=== PATIENT | male | born 1965 | race Caucasian/White ===

== ENCOUNTER 2016-11-10 08:15 | Emergency (ER) | payer MEDICARE, MEDICAID ==
[2016-11-10 08:40] VITALS: BP 134/81
--- NOTE | 2016-11-10 10:23 | UC ---
Quinn Conn Angela, scribed for Bishnu Martino MD on 11/10/16 at 0846 . Throat Pain/Nasal Quinn HPI - HPI Summary HPI Summary: This pt is a 50 y/o male presenting to [facility] c/o sore throat x3 weeks. PT reports it is painful to swallow and denies having any food stuck. Pt states he hikes all the time. He denies fever, nausea, abd pain, rhinorrhea, nasal congestion. Pt has taken ibuprofen with no relief. - History of Current Complaint Chief Complaint: UCGeneralIllness Stated Complaint: SORE THROAT Time Seen by Provider: 11/10/16 08:34 Hx Obtained From: Patient Onset/Duration: Lasting Weeks Cough: Nonproductive Associated Signs & Symptoms: Positive: Drooling - from medication. Negative: Sinus Discomfort, Nasal Discharge, Fever, Vomiting, Rash - Allergies/Home Medications Allergies/Adverse Reactions: Allergies Allergy/AdvReac Type Severity Reaction Status Date / Time No Known Allergies Allergy Verified 06/06/15 12:26 PMH/Surg Hx/FS Hx/Imm Hx Endocrine History: Diabetes, Thyroid Disease - Surgical History Surgical History: None - Family History Known Family History: Positive: Unknown, Other - mother of CA pancreas; no hx of colon cancer. - Social History Alcohol Use: None Substance Use Type: None Smoking Status (MU): Former Smoker Review of Systems Constitutional: Negative Skin: Negative Eyes: Negative ENT: Sore Throat Respiratory: Cough Cardiovascular: Negative Gastrointestinal: Negative Genitourinary: Negative Musculoskeletal: Negative Neurological: Negative All Other Systems Reviewed And Are Negative: Yes Physical Exam Triage Information Reviewed: Yes Vital Signs: Initial Vital Signs Temp 97.2 F 11/10/16 08:23 Pulse 82 11/10/16 08:23 Resp 18 11/10/16 08:23 BP 134/81 11/10/16 08:23 Pulse Ox 100 11/10/16 08:23 Vital Signs Reviewed: Yes - Additional Comments The patient is well-nourished in no acute distress and in no acute pain. The skin is warm and dry and skin color reflects adequate perfusion. HEENT: The head is normocephalic and atraumatic. The pupils are equal and reactive. The conjunctivae are clear and without drainage. Nares are patent and without drainage. Mouth reveals moist mucous membranes and the throat is without exudates, but some erythema in the pharynx. Bilateral cervical adenopathy. The external ears are intact. The ear canals are patent and without drainage. The tympanic membranes are intact. Neck is supple with full range of motion and non-tender. There are no carotid bruits. There is no neck vein distension. Respiratory: Chest is non-tender. Lungs are clear to auscultation and breath sounds are symmetrical and equal. Cardiovascular: Hear is regular rate and rhythm. There is no murmur or rub auscultated. Musculoskeletal: There is no back pain noted. Extremities are non-tender with full range of motion. There is good capillary refill. Neurological: Patient is alert and oriented to person, place and time. The patient has symmetrical motor strength in all four extremities. Psychiatric: The patient has an appropriate affect and does not exhibit any anxiety or depression. Throat Pain/Nasal Course/Dx - Differential Dx/Diagnosis Differential Diagnosis/HQI/PQRI: Pharyngitis, Tonsillitis, URI Provider Diagnoses: Pharyngitis Discharge - Discharge Plan Condition: Stable Disposition: HOME Prescriptions: Amoxicillin PO (*) [Amoxicillin 500 MG CAP*] 500 mg PO TID #30 cap Patient Education Materials: Pharyngitis (ED) Referrals: Dorian Alvarez MD [Medical Doctor] - Additional Instructions: Please follow up with your primary care provider to assure your symptoms are improving. The documentation as recorded by the Quinn beltran Angela accurately reflects the service I personally performed and the decisions made by , Bishnu Martino MD.
== END 2016-11-10 09:00 | disposition home or self-care (01) ==
LOC: UCEAST 08:15
DX: J02.9 Acute pharyngitis, unspecified (principal); E11.9 Type 2 diabetes mellitus without complications; E07.9 Disorder of thyroid, unspecified
CPT/HCPCS: 99212; G0463

== ENCOUNTER 2017-05-15 13:10 | Emergency (ER) | payer MEDICARE, MEDICAID ==
[2017-05-15 13:29] VITALS: BP 145/97
--- NOTE | 2017-05-20 21:17 | UC ---
Dario Conn Gabriel, scribed for Jason Huston MD on 05/15/17 at 1345 . Lower Extremity/Ankle HPI - HPI Summary HPI Summary: This patient is a 51 year old M presenting to [facility] with a chief complaint of intermittent numbness and tingling in his feet since a month ago. The patient rates the pain 0/10 in severity. Pt was diagnosed with DM for 10 years and was on metformin but was taken off it after 3 month. Patient denies color change of feet, neck pain, back pain, and incontinence. Pt fell off a roof several years ago and injured his back but no xrays were taken. - History of Current Complaint Chief Complaint: UCLowerExtremity Stated Complaint: FOOT NUMBNESS Time Seen by Provider: 05/15/17 13:35 Hx Obtained From: Patient Onset/Duration: Lasting Weeks - 4, Still Present Severity Initially: Moderate Severity Currently: Moderate Pain Intensity: 0 Pain Scale Used: 0-10 Numeric Able to Bear Weight: Yes - Allergies/Home Medications Allergies/Adverse Reactions: Allergies Allergy/AdvReac Type Severity Reaction Status Date / Time No Known Allergies Allergy Verified 05/15/17 13:30 Home Medications: Home Medications Atorvastatin* [Lipitor 20 MG*] 20 mg PO DAILY 05/15/17 [History Confirmed ] Duloxetine HCl [Cymbalta] 60 mg PO DAILY 05/15/17 [History Confirmed 05/15/17] PMH/Surg Hx/FS Hx/Imm Hx Endocrine History: Diabetes Other History Of: Negative For: Anticoagulant Therapy - Surgical History Surgical History: None Surgery Procedure, Year, and Place: denies - Family History Known Family History: Positive: Diabetes, Other - mother of CA pancreas; no hx of colon cancer. Negative: Respiratory Disease, Seizure Disorder - Social History Alcohol Use: Rare Substance Use Type: None Smoking Status (MU): Former Smoker When Did the Patient Quit Smoking/Using Tobacco: 12 years ago Household Exposure Type: Cigarettes Review of Systems Neurovascular: Decreased Sensation - and numbness in feet Musculoskeletal: Negative - back and neck pain All Other Systems Reviewed And Are Negative: Yes Physical Exam Triage Information Reviewed: Yes Vital Signs: Initial Vital Signs Temp 97.2 F 05/15/17 13:24 Pulse 96 05/15/17 13:24 Resp 18 05/15/17 13:24 BP 145/97 05/15/17 13:24 Pulse Ox 100 05/15/17 13:24 Vital Signs Reviewed: Yes - Additional Comments General: well-appearing, no pain distress Skin: warm, color reflects adequate perfusion, dry Head: normal Eyes: EOMI, HUMBERTO ENT: normal Neck: supple, nontender Respiratory: CTA, breath sounds present Cardiovascular: RRR Abdomen: soft, nontender Bowel: present Musculoskeletal: normal, strength/ROM intact. Dorsal pedis and posterior tibial pulses are less than 2 seconds. No sensation deficit strength. Achilles and patella reflex present Neurological: normal, sensory/motor intact, A&O x3 Psychological: affect/mood appropriate] Lower Extremity Course/Dx - Course Course Of Treatment: BP noted and advised to follow up with PCP - Differential Dx/Diagnosis Provider Diagnoses: Elevated blood pressure without history of hypertension Discharge - Discharge Plan Condition: Stable Disposition: HOME Patient Education Materials: Raynaud Disease (ED), Paresthesia (ED) Referrals: [facility] [Outside] Additional Instructions: FOLLOW UP WITH YOUR DOCTOR. GET RECHECKED FOR ANY WORSENING OF YOUR CONDITION OR QUESTIONS OR CONCERNS. Your blood pressure was elevated during today's visit. Please follow up with your primary care provider in 1-2 weeks. The documentation as recorded by the Dario beltran Gabriel accurately reflects the service I personally performed and the decisions made by me, Jason Huston MD.
== END 2017-05-15 14:06 | disposition home or self-care (01) ==
LOC: UCEAST 13:10
DX: R20.2 Paresthesia of skin (principal); R03.0 Elevated blood-pressure reading, without diagnosis of hypertension; E11.9 Type 2 diabetes mellitus without complications; Z87.891 Personal history of nicotine dependence
CPT/HCPCS: 81003; 99211; G0463

== ENCOUNTER 2017-10-04 16:39 | Emergency (ER) | payer MEDICARE, MEDICAID ==
[2017-10-04 16:52] VITALS: BP 108/65
--- NOTE | 2017-10-04 17:46 | UC ---
Rectal Pain HPI - HPI Summary HPI Summary: Patient with known history of hemorrhoids notes bright red blood when wiping after a BM for the past few days. 5 days ago had some nausea and one episode of vomiting. Had crampy abdominal pain and several episodes of diarrhea over the next 2 days. Yesterday and today patient states he feels more constipated and is having mucousy stools with blood streaks. Has sensation of incomplete voiding. No urinary symptoms. No fever. Admits that he has had intermittent mucousy stools for years. - History Of Current Complaint Chief Complaint: UCGI Stated Complaint: ABD PAIN,BLEEDING Time Seen by Provider: 10/04/17 17:01 Hx Obtained From: Patient Onset/Duration: Sudden Onset, Lasting Days, Still Present Severity Initially: Moderate Severity Currently: Moderate Pain Intensity: 0 Pain Scale Used: 0-10 Numeric Location Of Pain: Rectal Character: Sharp, Burning Aggravating Factor(s): Bowel Movement Alleviating Factor(s): Nothing Associated Signs And Symptoms: Positive: Blood-Streaked Stool, External Hemorrhoid, Diarrhea, Constipation Related History: Hemorrhoids - Allergies/Home Medications Allergies/Adverse Reactions: Allergies Allergy/AdvReac Type Severity Reaction Status Date / Time No Known Allergies Allergy Verified 10/04/17 16:46 PMH/Surg Hx/FS Hx/Imm Hx Endocrine History: Diabetes, Hypothyroidism Psychological History: Schizophrenia Other History Of: Negative For: Anticoagulant Therapy - Surgical History Surgical History: None Surgery Procedure, Year, and Place: denies - Family History Known Family History: Positive: Diabetes, Other - mother of CA pancreas; no hx of colon cancer. Negative: Respiratory Disease, Seizure Disorder - Social History Alcohol Use: Rare Substance Use Type: None Smoking Status (MU): Former Smoker When Did the Patient Quit Smoking/Using Tobacco: 12 years ago Household Exposure Type: Cigarettes Review of Systems Constitutional: Negative Respiratory: Negative Cardiovascular: Negative Gastrointestinal: Abdominal Pain, Vomiting, Diarrhea, Nausea Genitourinary: Negative All Other Systems Reviewed And Are Negative: Yes Physical Exam Triage Information Reviewed: Yes Appearance: Well-Appearing, No Pain Distress, Well-Nourished Vital Signs: Initial Vital Signs Temp 98.1 F 10/04/17 16:43 Pulse 106 10/04/17 16:43 Resp 18 10/04/17 16:43 BP 108/65 10/04/17 16:43 Pulse Ox 96 10/04/17 16:43 Vital Signs Reviewed: Yes Eyes: Positive: Conjunctiva Clear ENT: Positive: Hearing grossly normal Neck: Positive: Supple Respiratory: Positive: No respiratory distress, No accessory muscle use Cardiovascular: Positive: Pulses Normal Abdomen Description: Positive: Nontender, Soft. Negative: Distended, Guarding Bowel Sounds: Positive: Present Musculoskeletal: Positive: No Edema Neurological: Positive: Alert Psychological: Positive: Age Appropriate Behavior Skin: Negative: rashes UC Physical Exam Vital Signs On Initial Exam: Initial Vitals Temp Pulse Resp BP Pulse Ox 98.1 F 106 18 108/65 96 10/04/17 16:43 10/04/17 16:43 10/04/17 16:43 10/04/17 16:43 10/04/17 16:43 - Rectal Exam Rectal Exam: Hemorrhoids Rectal Pain Course/Dx - Course Course Of Treatment: Patient is a relatively poor historian. He presents complaining of abdominal cramping and mucousy stools over the past couple of days with streaks of blood. He reports he has had intermittent mucousy stools for over 5 years and has a known history of hemorrhoids. He states he came in because now he also has abdominal cramping and had an episode of vomiting with some diarrhea. Patient has several external hemorrhoids on physical exam. Not thrombosed. Stool specimen collected and sent for testing. Referred to GI for further evaluation. Advised to go to the ED if his symptoms worsen. Hydrocortisone rectal prescribed for hemorrhoid discomfort. - Differential Dx/Diagnosis Provider Diagnoses: 1. HEMORRHOIDS. 2. ACUTE DIARRHEA Discharge - Sign-Out/Discharge Documenting (check all that apply): Patient Departure - Discharge Plan Condition: Stable Disposition: HOME Prescriptions: Hydrocortisone 2.5% CREAM(NF) 1 applic TOPICAL TID PRN #1 tube PRN Reason: Pain Patient Education Materials: Hemorrhoids (ED), Acute Diarrhea (ED) Referrals: [facility] [Provider Group] - As Soon As Possible Marlon Ba MD [Primary Care Provider] - If Needed Additional Instructions: YOU HAVE HEMORRHOIDS. USE THE TOPICAL HYDROCORTISONE TO HELP WITH YOUR SYMPTOMS. DRINK PLENTY OF WATER. TAKE FIBER SUPPLEMENT. STOOL SAMPLE SENT FOR TESTING. FOLLOW-UP WITH GI TO DISCUSS YOUR HEMORRHOIDS AND INTERMITTENT MUCOUSY STOOLS [facility] Address: [address], [place] [address] GO TO THE ED WITHOUT FAIL IF YOU DEVELOP WORSENING PAIN, FEVER, BLAIRE BLOOD PER RECTUM OR ANY OTHER CONCERNING SYMPTOMS. - Billing Disposition and Condition Condition: STABLE Disposition: Home
== END 2017-10-04 17:50 | disposition home or self-care (01) ==
LOC: UCEAST 16:39
DX: K64.4 Residual hemorrhoidal skin tags (principal); R19.7 Diarrhea, unspecified; E11.9 Type 2 diabetes mellitus without complications; F20.9 Schizophrenia, unspecified; Z87.891 Personal history of nicotine dependence
CPT/HCPCS: 87045; 87046; 87328; 87329; 87899; 99212; G0463

== ENCOUNTER 2017-10-05 09:15 | Emergency (ER) | payer MEDICARE, MEDICAID ==
--- NOTE | 2017-10-05 09:56 | ED ---
Abdominal Pain/Male - HPI Summary HPI Summary: Patient presents with 7 day history of abdominal symptoms. He reports he's had years of intermittent abdominal cramping and abnormal bowel movements however over the past week he's had increased intensity with cramping and pain. Admits been intermittent. He does not correlate this with eating or drinking. Simply reports he will get a wave of urgency to use the bathroom, he may move some mucousy stool and wipe to find blood on toilet paper but does not have a substantial bowel movement. He continues to feel like he needs to move his bowels. States he hasn't moved gas in many days but denies nausea, vomiting, bloating and minimal pain when lying at rest. Denies dysuria, urinary frequency , urinary urgency, hesitation, testicular pain, penile discharge or irritation, flank pain. He reports he is urinating just fine. Last ate pineapple this morning without difficulty. Prior to that, he had dinner last night without difficulty as well. No previous history of diagnosed GERD, colitis, inflammatory bowel disease, food sensitivities, diverticulitis, etc. History of colonoscopy... Years ago. Denies any history of malignancy. Family history is positive for father having cholecystectomy last year. Mom of pancreatic CA. - History of Current Complaint Chief Complaint: EDAbdPain Stated Complaint: N/V,CONSTIPATION Time Seen by Provider: 10/05/17 09:18 Hx Obtained From: Patient Pain Intensity: 5 - Allergies/Home Medications Allergies/Adverse Reactions: Allergies Allergy/AdvReac Type Severity Reaction Status Date / Time No Known Allergies Allergy Verified 10/05/17 09:22 Home Medications: Home Medications Albuterol HFA INHALER* [Ventolin HFA Inhaler*] 2 puff INH Q4H PRN 10/05/17 [ History Confirmed 10/05/17] Atorvastatin* [Lipitor*] 20 mg PO DAILY 10/05/17 [History Confirmed 10/05/17] CloZAPine TAB* 100 mg PO QID WITH FOOD 10/05/17 [History Confirmed 10/05/17] DULoxetine DR CAP* [Cymbalta CAP*] 60 mg PO DAILY 10/05/17 [History Confirmed ] Divalproex DR TAB(*) [Depakote (*)] 1,000 mg PO BEDTIME 10/05/17 [History Confirmed 10/05/17] Levothyroxine TAB* [Synthroid TAB*] 125 mcg PO DAILY 10/05/17 [History Confirmed 10/05/17] PMH/Surg Hx/FS Hx/Imm Hx Previously Healthy: Yes Endocrine/Hematology History: Reports: Hx Diabetes - diet controlled, Hx Thyroid Disease - on meds Denies: Hx Anticoagulant Therapy, Hx Blood Disorders, Hx Unexplained Bleeding , Hx Coagulopothy, Autoimmune Disease Cardiovascular History: Denies: Hx Aneurysm, Hx Angina, Hx Angioplasty, Hx Atrial Fibrillation, Hx Auto Implanted Cardiovert Defib, Hx Cardiac Arrest, Hx Cardiomegaly, Hx Congenital Heart Disease, Hx Congestive Heart Failure, Hx Coronary Artery Disease, Hx Deep Vein Thrombosis, Hx Embolism, Hx Hypercholesterolemia, Hx Hypotension, Hx Hypertension, Hx Myocardial Infarction, Hx Pacemaker/ICD, Hx Peripheral Vascular Disease, Hx Rheumatic Fever, Hx Syncope, Hx Valvular Heart Disease, Other Cardiovascular Problems/Disorders Respiratory History: Denies: Hx Asthma, Hx Bronchopulmonary Dysplasia, Hx Chronic Bronchitis, Hx Chronic Obstructive Pulmonary Disease (COPD), Hx Cystic Fibrosis, Hx Lung Cancer , Hx Pleural Effusion, Hx Pneumonia, Hx Pulmonary Edema, Hx Pulmonary Embolism, Hx Seasonal Allergies, Hx Sleep Apnea, Other Respiratory Problems/Disorders GI History: Denies: Hx Cirrhosis, Hx Crohn's Disease, Hx Diverticulosis, Hx Gall Bladder Disease, Hx Gastroesophageal Reflux Disease, Hx Gastrointestinal Bleed, Hx Hiatal Hernia, Hx Irritable Bowel, Hx Jaundice, Hx Obstructive Bowel, Hx Ileostomy, Hx Pyloric Stenosis, Hx Ulcer, Hx Urosepsis, Other GI Disorders History: Denies: Hx Acute Renal Failure, Hx Benign Prostatic Hyperplasia, Hx Chronic Renal Failure, Hx Dialysis, Hx Kidney Infection, Hx Kidney Stones, Hx Renal Disease, Other Problems/Disorders Musculoskeletal History: Denies: Hx Arthritis, Hx Rheumatoid Arthritis, Hx Back Problems, Hx Bursitis , Hx Congenital Bone Abnormalities, Hx Fibromyalgia, Hx Gout, Hx Orthopedic Injury, Hx Osteoporosis, Hx Scoliosis, Hx Tendonitis, Other Musculoskeletal History Sensory History: Denies: Hx Cataracts, Hx Contacts or Glasses, Hx Eye Injury, Hx Eye Prosthesis, Hx Glaucoma, Hx Legally Blind, Hx Macular Degeneration, Hx Vision Problem, Hx Deafness, Hx Hearing Aid, Hx Hearing Problem, Other Sensory Impairments Opthamlomology History: Denies: Hx Cataracts, Hx Contacts or Glasses, Hx Eye Injury, Hx Eye Prosthesis, Hx Glaucoma, Hx Legally Blind, Hx Macular Degeneration, Hx Vision Problem, Other Sensory Impairments Neurological History: Denies: Hx CVA, Hx Dementia, Hx Developmental Delay, Hx Headaches, Hx Migraine, Hx Nerve Disease, Hx Peripheral Neuropathy, Hx Seizures, Hx Spinal Cord Injury, Hx Transient Ischemic Attacks (TIA), Other Neuro Impairments/ Disorders Psychiatric History: Reports: Hx Schizophrenia - depakote, klonipin, zoloft for years - no change in dosing - Surgical History Surgery Procedure, Year, and Place: denies Infectious Disease History: No Infectious Disease History: Denies: Hx Clostridium Difficile, Hx Hepatitis, Hx Human Immunodeficiency Virus (HIV), Hx of Known/Suspected MRSA, Hx Shingles, Hx Tuberculosis, Hx Known/ Suspected VRE, Hx Known/Suspected VRSA, History Other Infectious Disease, Traveled Outside the [place] in Last 30 Days - Family History Known Family History: Positive: Diabetes, Other - mother of CA pancreas; no hx of colon cancer; dad - cholecystect Negative: Respiratory Disease, Seizure Disorder - Social History Occupation: Disabled - mental health Lives: With Family - father Alcohol Use: Weekly Alcohol Amount: 1 beer Hx Substance Use: No Substance Use Type: Reports: None Hx Tobacco Use: Yes - [age] y.o. Smoking Status (MU): Former Smoker Amount Used/How Often: 1/2 PPD Review of Systems Constitutional: Negative Negative: Fever, Chills, Fatigue Cardiovascular: Negative Negative: Chest Pain Respiratory: Negative Negative: Shortness Of Breath Positive: Abdominal Pain Genitourinary: Negative Musculoskeletal: Negative Skin: Negative Neurological: Negative Psychological: Normal All Other Systems Reviewed And Are Negative: Yes Physical Exam Triage Information Reviewed: Yes Vital Signs On Initial Exam: Initial Vitals Temp Pulse Resp BP Pulse Ox 97.6 F 104 16 126/83 98 10/05/17 09:18 10/05/17 09:18 10/05/17 09:18 10/05/17 09:18 10/05/17 09:18 Vital Signs Reviewed: Yes Appearance: Positive: Well-Appearing, No Pain Distress, Well-Nourished Skin: Positive: Warm, Skin Color Reflects Adequate Perfusion, Dry Head/Face: Positive: Normal Head/Face Inspection Eyes: Positive: Conjunctiva Clear - anicteric sclera ENT: Positive: Hearing grossly normal, Pharynx normal - mucosa moist Neck: Positive: Supple, Nontender Respiratory/Lung Sounds: Positive: Clear to Auscultation, Breath Sounds Present. Negative: Rales, Rhonchi, Wheezes Cardiovascular: Positive: Normal, RRR, S1, S2. Negative: Leg Edema Left, Leg Edema Right Abdomen Description: Positive: Guarding, Other: - B/L lower ab TTP Lt > Rt - no rebounding, no referred pain Bowel Sounds: Positive: Present Musculoskeletal: Positive: Normal, Strength/ROM Intact Neurological: Positive: Normal, Sensory/Motor Intact, Alert, Oriented to Person Place, Time, CN Intact II-III Psychiatric: Positive: Normal Diagnostics - Vital Signs Vital Signs Temp Pulse Resp BP Pulse Ox 10/05/17 09:18 97.6 F 104 16 126/83 98 - Laboratory Result Diagrams: 10/05/17 10:05 10/05/17 10:05 Lab Statement: Any lab studies that have been ordered have been reviewed, and results considered in the medical decision making process. Abdominal Pain Fem Course/Dx - Diagnoses Provider Diagnoses: Colitis Discharge - Sign-Out/Discharge Documenting (check all that apply): Patient Departure - Discharge Plan Condition: Stable Disposition: HOME Prescriptions: predniSONE TAB* [Deltasone 10 MG TAB*] 10 mg PO DAILY #17 tab Patient Education Materials: Colitis (ED) Referrals: Dong Lorenzo MD [Medical Doctor] - Additional Instructions: You appear to have an inflammatory bowel process of your colon. This may be treated with a steroid called prednisone. Take your medication as directed. Please ask the pharmacist for instructions as this is a taper down dose. When you have completed the course, you should need no further medication. You will take it as follows: 20mg (2 tabs) once a day for 5 days then 10mg (1 tab) once a day for 5 days then 5mg (1/2 tab) once a day for 4 days It is important that you follow-up with a administrative assistant data entry for colonoscopy. Call today to schedule an appointment. Contact information provided here. *If your pain becomes worse, you develop a fever, heavy or prolonged rectal bleeding, inability to drink fluids or severe vomiting, return to the ED. - Billing Disposition and Condition Condition: STABLE Disposition: Home
[2017-10-05 10:17] LABS: ABS Basophils 0 10^3/ul (0-0.2); ABS Eosinophils 0 10^3/ul (0-0.6); ABS Lymphocytes 0.9 10^3/ul (1.0-4.8); ABS Monocytes 1.1 10^3/ul (0-0.8); ABS Nucleated RBC 0 10^3/ul; Eosinophil % 0 % (0-6); Hematocrit 38 % (42-52); Hemoglobin 13.3 g/dl (14.0-18.0); Lymphocyte % 9.9 % (25-47); Mean Corpuscular HGB Conc 35 g/dl (31-36); Mean Corpuscular Hemoglobin 29 pg (27-31); Mean Corpuscular Volume 84 fL (80-94); Mean Platelet Volume 6.8 um3 (7.4-10.4); Nucleated Red Blood Cells % 0; Platelet Count 220 10^3/ul (150-450); Red Blood Count 4.55 10^6/ul (4.00-5.40); Red Cell Distribution Width 13 % (10.5-15)
[2017-10-05 10:27] LABS: INR 1.03 (0.77-1.02)
[2017-10-05 10:34] LABS: EGFR Non-African American 94.5 (>60)
[2017-10-05] MEDS ORDERED: Iodixanol* (CONTRAST) 320 MG/ML 100 ML SDV IV ONE (10:39)
--- NOTE | 2017-10-05 12:13 | RAD ---
Indication: Lower abdominal pain mostly in the left lower quadrant. Contrast: Administered 102.1 ml of VISAPAQUE 320 mg/ml CT of the abdomen and pelvis was performed after oral and IV contrast administration. Coronal and sagittal reconstructed images were obtained. Lung bases demonstrate small bilateral pleural effusions. Heart demonstrates no pericardial effusion. The liver is normal in size. No focal lesions or intrahepatic duct dilatation is noted. The gallbladder demonstrates no calcified gallstones. No pericholecystic fluid or wall thickening is noted. The spleen is normal in size. The common duct is not dilated. The pancreas demonstrates no mass or pancreatic duct dilatation. No adrenal masses are noted. The kidneys demonstrate symmetric nephrograms without hydronephrosis. No retroperitoneal lymphadenopathy is noted. No focal renal lesions are noted. Aorta and inferior vena cava are normal in size and caliber. No retroperitoneal adenopathy is noted. Small bowel demonstrates no abnormal dilatation. There is a normal appendix noted. Colon is filled with stool. In the rectum and sigmoid colon extending to the descending colon there is mucosal thickening of the sigmoid colon. This is suspicious for colitis. No hernias are noted. No drainable fluid collections are noted. IMPRESSION: Mucosal thickening of the rectum, sigmoid colon and a portion of the descending colon consistent with colitis. Etiology is unclear and may be inflammatory, infectious or vascular. Normal appendix.
[2017-10-05 13:24] LABS: Urine Appearance Clear; Urine Blood Negative (Negative); Urine Color Yellow; Urine Ketones Negative (Negative); Urine Protein Negative (Negative); Urine Specific Gravity 1.056 (1.010-1.030); Urine Urobilinogen Negative (Negative)
[2017-10-05] MEDS ORDERED: Magnesium Oxide TAB* 400 MG PO ONE (14:24)
[2017-10-05] MEDS ORDERED: predniSONE TAB* 20 MG PO ONE (14:24)
[2017-10-05 14:43] VITALS: BP 137/78
== END 2017-10-05 14:53 | disposition home or self-care (01) ==
LOC: ED 09:15
DX: K52.9 Noninfective gastroenteritis and colitis, unspecified (principal); E07.9 Disorder of thyroid, unspecified; E11.9 Type 2 diabetes mellitus without complications; F20.9 Schizophrenia, unspecified; Z87.891 Personal history of nicotine dependence; Z79.899 Other long term (current) drug therapy
CPT/HCPCS: 36415; 74177; 80053; 81003; 83605; 83690; 83735; 84443; 85025; 85610; 85730; 86140; 99284; J7512; Q9967

== ENCOUNTER 2018-02-20 09:13 | Emergency (ER) | payer MEDICARE, MEDICAID ==
[2018-02-20 09:25] VITALS: BP 109/80
--- NOTE | 2018-02-20 10:18 | UC ---
Cardiac HPI - HPI Summary HPI Summary: Patient complains of one-month of intermittent midsternal chest tightness. Reports associated shortness of breath. No cough. No nausea. No sweats. History of COPD so started using his inhaler which is not helping. Patient is a relatively poor historian but indicates that sometimes the pain worsens with exertion. States he had a negative stress test several months ago. - History of Current Complaint Chief Complaint: UCChestPain Stated Complaint: COUGH CONGESTION Time Seen by Provider: 02/20/18 09:29 Hx Obtained From: Patient Onset/Duration: Gradual Onset, Lasting Weeks, Still Present Timing: Intermittent Episodes Lasting: Initial Severity: Moderate Current Severity: Moderate Pain Intensity: 2 Chest Pain Location: Diffuse Character: Tightness Aggravating Factor(s): Exertion Alleviating Factor(s): Nothing Associated Signs & Symptoms: Positive: Chest Pain, SOB. Negative: Tingling, Dizziness, Diaphoresis, Nausea/Vomiting, Palpitations - Allergy/Home Medications Allergies/Adverse Reactions: Allergies Allergy/AdvReac Type Severity Reaction Status Date / Time No Known Allergies Allergy Verified 02/20/18 09:25 PMH/Surg Hx/FS Hx/Imm Hx Endocrine History: Diabetes, Hypothyroidism Respiratory History: COPD Psychological History: Schizophrenia Other History Of: Negative For: Anticoagulant Therapy - Surgical History Surgical History: None Surgery Procedure, Year, and Place: denies - Family History Known Family History: Positive: Diabetes, Other - mother of CA pancreas; no hx of colon cancer; dad - cholecystect Negative: Respiratory Disease, Seizure Disorder - Social History Alcohol Use: Weekly Alcohol Amount: 1 beer Substance Use Type: None Smoking Status (MU): Former Smoker Amount Used/How Often: 1/2 PPD When Did the Patient Quit Smoking/Using Tobacco: 12 years ago Household Exposure Type: Cigarettes Review of Systems All Other Systems Reviewed And Are Negative: Yes Constitutional: Positive: Negative ENT: Positive: Negative Respiratory: Positive: Shortness Of Breath Cardiovascular: Positive: Chest Pain Gastrointestinal: Positive: Negative Physical Exam Triage Information Reviewed: Yes Appearance: Well-Appearing, No Pain Distress, Well-Nourished Vital Signs: Initial Vital Signs Temp 98.3 F 02/20/18 09:20 Pulse 91 02/20/18 09:20 Resp 18 02/20/18 09:20 BP 109/80 02/20/18 09:20 Pulse Ox 97 02/20/18 09:20 Vital Signs Reviewed: Yes Eyes: Positive: Conjunctiva Clear ENT: Positive: Hearing grossly normal Neck: Positive: Supple Respiratory Exam: Normal Cardiovascular Exam: Normal Abdomen Description: Positive: Soft Bowel Sounds: Positive: Present Musculoskeletal: Positive: No Edema Neurological: Positive: Alert Psychological: Positive: Age Appropriate Behavior Skin: Negative: Rashes Diagnostics - Radiology CHEST XRAY Radiology Interpretation Completed By: Radiologist Summary of Radiographic Findings: UNREMARKABLE - EKG Cardiac Rate: NL - 81 BPM Cardiac Rhythm: Sinus: Normal Ectopy: None ST Segment: Normal - Assessment/Plan Course Of Treatment: TO [facility] ED BY PRIVATE CAR - Clinical Impression Provider Diagnosis: Chest pain Discharge - Sign-Out/Discharge Documenting (check all that apply): Patient Departure All imaging exams completed and their final reports reviewed: Yes - Discharge Plan Condition: Stable Disposition: HOME-RECOMMEND TO ED Patient Education Materials: Chest Pain (ED) Referrals: Marlon Ba MD [Primary Care Provider] - If Needed Additional Instructions: CHEST XRAY TODAY UNREMARKABLE. GO DIRECTLY TO THE [facility] ED FROM HERE FOR FURTHER EVALUATION. YOU HAVE DECLINED TRANSFER TO THE ED BY AMBULANCE. BE ADVISED THAT BY NOT TRAVELING IN A MONITORED SETTING YOU COULD BE RISKING WORSENING OF YOUR CONDITION THAT COULD POSE A THREAT TO YOUR LIFE, HEALTH AND MEDICAL SAFETY. - Billing Disposition and Condition Condition: STABLE Disposition: Home-Recommend to ED
== END 2018-02-20 11:07 | disposition home health service (06) ==
LOC: UCEAST 09:13
DX: R07.9 Chest pain, unspecified (principal); E11.9 Type 2 diabetes mellitus without complications; Z87.891 Personal history of nicotine dependence
CPT/HCPCS: 71046; 93005; 99212; G0463

== ENCOUNTER 2018-02-20 11:32 | Emergency (ER) | payer MEDICARE, MEDICAID ==
[2018-02-20] MEDS ORDERED: Albuterol/Ipratropium NEB.SOL* Albuterol 2.5 MG/Ipratropium 0.5 MG 3 ML INH ONE (11:51)
[2018-02-20] MEDS ORDERED: methylPREDNISolone 125 MG* 2 ML VIAL IV ONE (11:51)
--- NOTE | 2018-02-20 12:00 | ED ---
HPI Chest Pain - HPI Summary HPI Summary: Patient is a 52 y/o M w/ c/o pain across his chest which he describes as "lung pain". Patient reports that he was seen at and sent to ED after seeing something "irregular" on his EKG. He denies coughing, reports chest pain is intermittent. He is a former smoker, smoked between ages 20 and 32. Patient states that chest pain onset after he began to use his inhaler. He denies pain across chest currently, states he is SOB but notes that this is chronic. Last occurrence of chest pain was a few days ago. No cold Sx reported. He states he experiences intermittent pain/numbness at BUE. FMHx of cardiac disease in father , who had ID. Patient notes he had a cardiac stress test 3-[address] Ghosh, states it was normal. Fever, chills, erythema of eyes, sore throat, cough, abdominal pain, vomiting, nausea, dysuria, hematuria, myalgia, edema, rash and dizziness are not reported. On triage, associated severity is rated 1/10, nothing is noted to aggravate/alleviate Sx. Home medications and allergies are reviewed. - History of Current Complaint Chief Complaint: EDChestPainROMI Time Seen by Provider: 02/20/18 11:42 Hx Obtained From: Patient Onset/Duration: Still Present - SOB, Resolved - chest pain Timing: Constant - SOB, Intermittent - chest pain Current Severity: Mild - 1/10 Pain Intensity: 1 Pain Scale Used: 0-10 Numeric - 1/10 Aggravating Factor(s): Nothing Alleviating Factor(s): Nothing Associated Signs and Symptoms: Positive: Chest Pain, Numbness - BUE, Shortness of Breath, Other: - Fever, chills, erythema of eyes, sore throat, cough, abdominal pain, vomiting, nausea, dysuria, hematuria, myalgia, edema, rash and dizziness are not reported.. Negative: Dizziness, Fever, Chills, Nausea, Cough , Productive Cough, Nonproductive Cough, Abdominal Pain, Vomiting, Edema - Allergy/Home Medications Allergies/Adverse Reactions: Allergies Allergy/AdvReac Type Severity Reaction Status Date / Time No Known Allergies Allergy Verified 02/20/18 09:25 PMH/Surg Hx/FS Hx/Imm Hx Endocrine/Hematology History: Reports: Hx Diabetes - diet controlled, Hx Thyroid Disease - on meds Denies: Hx Anticoagulant Therapy, Hx Blood Disorders, Hx Unexplained Bleeding Cardiovascular History: Denies: Hx Aneurysm, Hx Angina, Hx Angioplasty, Hx Atrial Fibrillation, Hx Auto Implanted Cardiovert Defib, Hx Cardiac Arrest, Hx Cardiomegaly, Hx Congenital Heart Disease, Hx Congestive Heart Failure, Hx Coronary Artery Disease, Hx Deep Vein Thrombosis, Hx Embolism, Hx Hypercholesterolemia, Hx Hypotension, Hx Hypertension, Hx Myocardial Infarction, Hx Pacemaker/ICD, Hx Peripheral Vascular Disease, Hx Rheumatic Fever, Hx Syncope, Hx Valvular Heart Disease, Other Cardiovascular Problems/Disorders Respiratory History: Reports: Hx Chronic Obstructive Pulmonary Disease (COPD) Denies: Hx Asthma, Hx Bronchopulmonary Dysplasia, Hx Chronic Bronchitis, Hx Cystic Fibrosis, Hx Lung Cancer, Hx Pleural Effusion, Hx Pneumonia, Hx Pulmonary Edema, Hx Pulmonary Embolism, Hx Seasonal Allergies, Hx Sleep Apnea, Other Respiratory Problems/Disorders GI History: Denies: Hx Cirrhosis, Hx Crohn's Disease, Hx Diverticulosis, Hx Gall Bladder Disease, Hx Gastroesophageal Reflux Disease, Hx Gastrointestinal Bleed, Hx Hiatal Hernia, Hx Irritable Bowel, Hx Jaundice, Hx Obstructive Bowel, Hx Ileostomy, Hx Pyloric Stenosis, Hx Ulcer, Hx Urosepsis, Other GI Disorders History: Denies: Hx Acute Renal Failure, Hx Benign Prostatic Hyperplasia, Hx Chronic Renal Failure, Hx Dialysis, Hx Kidney Infection, Hx Kidney Stones, Hx Renal Disease, Other Problems/Disorders Musculoskeletal History: Denies: Hx Arthritis, Hx Rheumatoid Arthritis, Hx Back Problems, Hx Bursitis , Hx Congenital Bone Abnormalities, Hx Fibromyalgia, Hx Gout, Hx Orthopedic Injury, Hx Osteoporosis, Hx Scoliosis, Hx Tendonitis, Other Musculoskeletal History Sensory History: Denies: Hx Cataracts, Hx Contacts or Glasses, Hx Eye Injury, Hx Eye Prosthesis, Hx Glaucoma, Hx Legally Blind, Hx Macular Degeneration, Hx Vision Problem, Hx Deafness, Hx Hearing Aid, Hx Hearing Problem, Other Sensory Impairments Opthamlomology History: Denies: Hx Cataracts, Hx Contacts or Glasses, Hx Eye Injury, Hx Eye Prosthesis, Hx Glaucoma, Hx Legally Blind, Hx Macular Degeneration, Hx Vision Problem, Other Sensory Impairments Neurological History: Denies: Hx CVA, Hx Dementia, Hx Developmental Delay, Hx Headaches, Hx Migraine, Hx Nerve Disease, Hx Peripheral Neuropathy, Hx Seizures, Hx Spinal Cord Injury, Hx Transient Ischemic Attacks (TIA), Other Neuro Impairments/ Disorders Psychiatric History: Reports: Hx Schizophrenia - depakote, klonipin, zoloft for years - no change in dosing - Surgical History Surgery Procedure, Year, and Place: denies Infectious Disease History: No Infectious Disease History: Denies: Hx Clostridium Difficile, Hx Hepatitis, Hx Human Immunodeficiency Virus (HIV), Hx of Known/Suspected MRSA, Hx Shingles, Hx Tuberculosis, Hx Known/ Suspected VRE, Hx Known/Suspected VRSA, History Other Infectious Disease, Traveled Outside the [place] in Last 30 Days - Family History Known Family History: Positive: Cardiac Disease - father had ID , Diabetes, Other - mother of CA pancreas; no hx of colon cancer; dad - cholecystect Negative: Respiratory Disease, Seizure Disorder - Social History Alcohol Use: Weekly Alcohol Amount: 1 beer Hx Substance Use: No Substance Use Type: Reports: None Hx Tobacco Use: Yes - [age] y.o. Smoking Status (MU): Former Smoker Amount Used/How Often: 1/2 PPD Review of Systems Negative: Fever, Chills Negative: Erythema Negative: Sore Throat Positive: Chest Pain - SINCE RESOLVED Positive: Shortness Of Breath. Negative: Cough Negative: Abdominal Pain, Vomiting, Nausea Negative: dysuria, hematuria Positive: Myalgia - PAIN AT BUE . Negative: Edema Negative: Rash Neurological: Other - NEGATIVE - DIZZINESS Positive: Numbness - BUE All Other Systems Reviewed And Are Negative: Yes Physical Exam - Summary Physical Exam Summary: Constitutional: Well-developed, Well-nourished, Alert. (-) Distressed Skin: Warm, Dry HENT: Normocephalic; Atraumatic Eyes: Conjunctiva normal Neck: Musculoskeletal ROM normal neck. (-) JVD, (-) Stridor, (-) Tracheal deviation Cardio: Rhythm regular, rate normal, Heart sounds normal; Intact distal pulses; The pedal pulses are 2+ and symmetric. Radial pulses are 2+ and symmetric. (-) Murmur Pulmonary/Chest wall: Effort normal. (-) Wheezes, (-) Rales (+) extremely diminished air movement Abd: Soft, (-) epigastric tenderness, (-) Distension, (-) Guarding, (-) Rebound Musculoskeletal: (-) Edema Lymph: (-) Cervical adenopathy Neuro: Alert, Oriented x3 Psych: Mood and affect Normal Triage Information Reviewed: Yes Vital Signs On Initial Exam: Initial Vitals Temp Pulse Resp BP Pulse Ox 98.2 F 91 18 167/90 98 02/20/18 11:33 02/20/18 11:33 02/20/18 11:33 02/20/18 11:33 02/20/18 11:33 Vital Signs Reviewed: Yes Diagnostics - Vital Signs Vital Signs Temp Pulse Resp BP Pulse Ox 02/20/18 11:33 98.2 F 91 18 167/90 98 - Laboratory Result Diagrams: 02/20/18 12:24 02/20/18 12:24 Lab Statement: Any lab studies that have been ordered have been reviewed, and results considered in the medical decision making process. - Radiology CXR Radiology Interpretation Completed By: Radiologist Summary of Radiographic Findings: CXR IMPRESSION: NO ACTIVE CARDIOPULMONARY DISEASE. THIS REPORT WAS REVIEWED BY ED PHYSICIAN. - EKG 1140 Cardiac Rate: NL - rate of 83 bpm EKG Rhythm: Sinus Rhythm Summary of EKG Findings: EKG showed sinus rhythm with rate of 83 BPM, no STEMI. Re-Evaluation - Re-Evaluation First Eval Re-Evaluation Time: 15:11 Change: Improved Comment: Patient was ambulated around the ED department with no complications, patient states he feels fine. Results of labs and tests were discussed with patient, he is agreeable with discharge and follow up with PCP and materials engineer. Chest Pain Course/Dx - Course Course Of Treatment: Patient is a 52 y/o M w/ c/o pain across his chest which he describes as "lung pain". Patient reports that he was seen at and sent to ED after seeing something "irregular" on his EKG. He denies coughing, reports chest pain is intermittent. He is a former smoker, smoked between ages 20 and 32. Patient states that chest pain onset after he began to use his inhaler. He denies pain across chest currently, states he is SOB but notes that this is chronic. Last occurrence of chest pain was a few days ago. No cold Sx reported. He states he experiences intermittent pain/numbness at BUE. FMHx of cardiac disease in father, who had ID. Patient notes he had a cardiac stress test 3-[address] Ghosh, states it was normal. On physical exam, extremely diminished air movement is noted. EKG showed sinus rhythm with rate of 83 BPM, no STEMI. CXR IMPRESSION: NO ACTIVE CARDIOPULMONARY DISEASE. Labs showed Hgb 13.9, Hct 40, MPV 6.7, D-dimer < 200, glucose 119, lactic acid 1.6. First trop was negative, second was negative. During ED course, patient received Solu- Medrol 125 mg IV ED ONCE ONE, Motrin Tab 600 mg PO ED ONCE ONE, and Duoneb 1 INH ED ONCE ONE. 1511 - Patient was ambulated around the ED department with no complications, patient states he feels fine. Results of labs and tests were discussed with patient, he is agreeable with discharge and follow up with PCP and materials engineer. - Diagnoses Provider Diagnoses: Chest pain, COPD exacerbation, Hypertension Discharge - Sign-Out/Discharge Documenting (check all that apply): Patient Departure - DISCHARGE - Discharge Plan Condition: Stable Disposition: HOME Prescriptions: Albuterol HFA INHALER* [Ventolin HFA Inhaler*] 2 puff INH Q4H PRN #1 mdi PRN Reason: Cough Ibuprofen TAB* [Motrin TAB* 400 MG] 400 mg PO Q6H PRN #15 tab PRN Reason: Pain - Moderate To Severe Lisinopril TAB* [Prinivil TAB 5 MG*] 5 mg PO DAILY #14 tab predniSONE TAB* [Deltasone TAB*] 50 mg PO DAILY #4 tab Patient Education Materials: Hypertension (ED), COPD (Chronic Obstructive Pulmonary Disease) (ED), Chest Pain (ED) Referrals: Marlon Ba MD [Primary Care Provider] - [facility] [Outside] - 3 Days Rocky Ghosh MD [Medical Doctor] - 3 Days Additional Instructions: RETURN TO ED FOR ANY NEW OR WORSENING SYMPTOMS. FOLLOW UP WITH PRIMARY CARE PHYSICIAN AND POWER SHOVEL OPERATOR HELPER IN 2-3 DAYS. - Attestation Statements Document Initiated by Scribe: Yes Documenting Scribe: TOBIAS BLACKMON Provider For Whom Scribe is Documenting (Include Credential): REMBERTO SAUL MD Scribe Attestation: TOBIAS Conn , scribed for REMBERTO SAUL MD on 02/20/18 at 1526. Status of Scribe Document: Ready
[2018-02-20 12:31] LABS: ABS Basophils 0 10^3/ul (0-0.2); ABS Eosinophils 0 10^3/ul (0-0.6); ABS Lymphocytes 2.4 10^3/ul (1.0-4.8); ABS Monocytes 0.6 10^3/ul (0-0.8); ABS Neutrophils 5.5 10^3/ul (1.5-7.7); ABS Nucleated RBC 0 10^3/ul; Eosinophil % 0 %; Hematocrit 40 % (42-52); Hemoglobin 13.9 g/dl (14.0-18.0); Lymphocyte % 27.9 %; Mean Corpuscular HGB Conc 34 g/dl (31-36); Mean Corpuscular Hemoglobin 29 pg (27-31); Mean Corpuscular Volume 83 fL (80-94); Mean Platelet Volume 6.7 fL (7.4-10.4); Nucleated Red Blood Cells % 0.1; Platelet Count 299 10^3/ul (150-450); Red Blood Count 4.84 10^6/ul (4.00-5.40); Red Cell Distribution Width 14 % (10.5-15); White Blood Count 8.5 10^3/ul (3.5-10.8)
[2018-02-20 12:53] LABS: EGFR Non-African American 84.9 (>60)
[2018-02-20] MEDS ORDERED: Ibuprofen TAB* 600 MG PO ONE (15:05)
[2018-02-20 15:21] VITALS: BP 161/89
== END 2018-02-20 15:18 | disposition home or self-care (01) ==
LOC: ED 11:32
DX: R07.89 Other chest pain (principal); J44.1 Chronic obstructive pulmonary disease with (acute) exacerbation; I10 Essential (primary) hypertension; E07.9 Disorder of thyroid, unspecified; F20.9 Schizophrenia, unspecified; Z87.891 Personal history of nicotine dependence; E11.9 Type 2 diabetes mellitus without complications
CPT/HCPCS: 36415; 71045; 71046; 80053; 83605; 84484; 85025; 85379; 93005; 96374; 99212; 99283; A9270-GY; G0463; J2930

== ENCOUNTER 2019-03-18 15:20 | Emergency (ER) | payer MEDICARE, MEDICAID ==
--- OUTSIDE RECORDS SUMMARY | 2019-03-18 15:39 | XMS REPORT | Continuity of Care Document ---
:1965 External Reference #:[id number] Author Name Kalli Ram MD (transmitted by agent of provider Tasha Joseph) Address [address], [address] [place] [address] Care Team Providers Name Role Phone Marlon Ba MD - Internal Care Team Information Supervisor Last Model Department Medicine Problems Description No Information Available Social History Type Date Description Comments Sex Unknown ETOH Use Occasionally consumes beer Tobacco Use Start: Unknown End: Patient is a former quit smoking in Unknown smoker 1997 Recreational Drug Use Denies Drug Use Smoking Status Reviewed: 02/12/19 Patient is a former quit smoking in smoker 1997 Exercise Type/Frequency Exercises regularly daily Allergies, Adverse Reactions, Alerts Description No Known Drug Allergies Medications Active Medications SIG Qnty Indications Ordering Date Provider Jone Beverly 1 inhalation once 30units Charmaine 05/28/2018 daily JUVENAL Julien 62.5mcg/Inh Aerosol Clozapine 4 tablets by Unknown 100mg Tablets mouth daily Divalproex Sodium 2 tablets by Unknown 500mg mouth at bedtime Tablets Duloxetine HCL 1 capsule by Unknown 60mg mouth daily Caps DR Mera Lattorrey 1 tablet daily Unknown 80mg Tablets Levothyroxine Sodium 1 by mouth every Unknown day 125mcg Tablets Ventolin HFA 2 puffs by mouth Unknown four times a day 108(90Base) mcg/Act as needed Aerosol Lisinopril 1 by mouth every Unknown 5mg Tablets day Immunizations Description No Information Available Vital Signs Date Vital Result Comment 02/12/2019 9:26am Height 70 inches 5'10" Weight 189.00 lb Heart Rate 82 /min BP Systolic Sitting 118 mmHg BP Diastolic Sitting 78 mmHg O2 % BldC Oximetry 97 % BMI (Body Mass Index) 27.1 kg/m2 11/29/2018 12:11pm Height 70 inches 5'10" Weight 190.00 lb Heart Rate 100 /min BP Systolic Sitting 112 mmHg Lue regular cuff BP Diastolic Sitting 76 mmHg Lue regular cuff Respiratory Rate 16 /min O2 % BldC Oximetry 95 % BMI (Body Mass Index) 27.3 kg/m2 Results Description No Information Available Procedures Description No Information Available Medical Devices Description No Information Available Encounters Type Date Location Provider Dx Diagnosis Office Visit 02/12/2019 [facility] Kalli Ram, R06.02 Shortness of 9:30a [facility] eileen Sky J44.9 Chronic obstructive pulmonary disease, unspecified Office Visit 11/29/2018 12:45p Pul[facility] And Kalli J44.9 Chronic [facility] obstructive 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02/12/2019 - Kalli Ram, MDR06.02 Shortness of [id number] Chronic obstructive pulmonary disease, unspecified Functional Status Description No Information Available Mental Status Description No Information Available Referrals Description No Information Available
--- OUTSIDE RECORDS SUMMARY | 2019-03-18 15:39 | XMS REPORT ---
:1965 Author Name Live Weeks Address [facility] [address] [place] [address] Care Team Providers Name Role Phone Live Weeks Unavailable Unavailable Tru Arshad Unavailable Unavailable Allergies, Adverse Reactions, Alerts Allergy Code CodeSystem Reaction Severity Status Substance RxNorm Medications Medication Medication Medication Start Route Dose Status Fill Code CodeSystem Date Instructions RxNorm NoCurrentDosage No NoCurrentFrequen Longer cy Active levothyroxine RxNorm oral 125 mcg tablet No for 30 Longer day(s) Active lisinopril RxNorm oral 5 mg tablet Active for 90 day(s) Ventolin HFA RxNorm 2018-0 inhl 90 mcg/actuation Active for 17 5-30 HFA aerosol day(s) inhaler clozapine RxNorm 2019-0 oral 100 mg tablet Active for 28 2-28 day(s) divalproex RxNorm oral 500 mg Active for 30 tablet,delayed day(s) release (DR/EC) duloxetine RxNorm oral 60 mg No for 30 capsule,delayed Longer day(s) release(DR/EC) Active Incruse RxNorm inhl 62.5 Active for 30 Ellipta mcg/actuation day(s) blister with device atorvastatin RxNorm oral 20 mg tablet Active for 90 day(s) duloxetine RxNorm 2019-0 oral 60 mg 1 No Take 1 4-11 capsule,delayed Longer capsule release(DR/EC) Active every morning every morning for 30 day(s) levothyroxine RxNorm 2019-0 oral 125 mcg 1 tablet No Take 1 tablet 4-11 every morning Longer every Active morning for 30 day(s) levothyroxine RxNorm 2019-0 oral 125 mcg 1 tablet Active Take 1 tablet 7-08 every morning every morning for 30 day(s) duloxetine RxNorm 2019-0 oral 60 mg 1 Active Take 1 8-08 capsule,delayed capsule release(DR/EC) every morning every morning for 30 day(s) Hospital Discharge Medications Medication Direction Start Date Status Indications Fill Instuctions No Discharge Medication Problems Problem Name Code CodeSystem Start Date End Date Status SNOMED-CT 2018-06-15 Active Laboratory Values/Results Test Test Code Code System Actual Result Date LOINC Procedures Procedure Name Code CodeSystem Target Site Date of Procedure SNOMED-CT () 2018-07-05 SNOMED-CT () 2018-07-02 SNOMED-CT () 2018-07-10 SNOMED-CT () 2018-07-24 SNOMED-CT () 2018-08-07 SNOMED-CT () 2018-09-06 SNOMED-CT () 2018-09-20 SNOMED-CT () 2018-10-02 SNOMED-CT () 2018-10-02 SNOMED-CT () 2018-11-01 SNOMED-CT () 2018-11-28 SNOMED-CT () 2018-12-14 Encounter Diagnosis Code CodeSystem Description Date Finding Finding Status Code [address] [facility] Psychotherapy - 2018-09-2 - Active Individual 30 min 0 SNOMED-CT Vital Signs Vitals Date Value Immunizations Vaccine Name Vaccine Code CodeSystem Date Status Social History Element Description Start Date End Date Code CodeSystem Description SNOMED-CT Hospital Discharge Instructions Reason For Referral
[2019-03-18] MEDS ORDERED: Acetaminophen TAB* 325 MG PO ONE (16:42)
--- NOTE | 2019-03-18 16:42 | ED ---
Influenza-Like Illness - HPI Summary HPI Summary: Patient is a 53-year-old male who presents to the emergency department for flulike symptoms since , 5 days ago. Patient notes fever, productive cough, sore throat and nasal congestion. History of psychiatric illness and COPD. Patient states he does not smoke any longer. Patient notes cough is very productive. Symptoms are mild in severity. No current modifying factors. - History of Current Complaint Chief Complaint: EDFluSymptoms Time Seen by Provider: 03/18/19 16:32 Hx Obtained From: Patient - Allergy/Home Medications Allergies/Adverse Reactions: Allergies Allergy/AdvReac Type Severity Reaction Status Date / Time No Known Allergies Allergy Verified 03/18/19 15:25 PMH/Surg Hx/FS Hx/Imm Hx Previously Healthy: Yes Endocrine/Hematology History: Reports: Hx Diabetes - diet controlled, Hx Thyroid Disease - on meds Denies: Hx Anticoagulant Therapy, Hx Blood Disorders, Hx Unexplained Bleeding Cardiovascular History: Denies: Hx Aneurysm, Hx Angina, Hx Angioplasty, Hx Atrial Fibrillation, Hx Auto Implanted Cardiovert Defib, Hx Cardiac Arrest, Hx Cardiomegaly, Hx Congenital Heart Disease, Hx Congestive Heart Failure, Hx Coronary Artery Disease, Hx Deep Vein Thrombosis, Hx Embolism, Hx Hypercholesterolemia, Hx Hypotension, Hx Hypertension, Hx Myocardial Infarction, Hx Pacemaker/ICD, Hx Peripheral Vascular Disease, Hx Rheumatic Fever, Hx Syncope, Hx Valvular Heart Disease, Other Cardiovascular Problems/Disorders Respiratory History: Reports: Hx Chronic Obstructive Pulmonary Disease (COPD) Denies: Hx Asthma, Hx Bronchopulmonary Dysplasia, Hx Chronic Bronchitis, Hx Cystic Fibrosis, Hx Lung Cancer, Hx Pleural Effusion, Hx Pneumonia, Hx Pulmonary Edema, Hx Pulmonary Embolism, Hx Seasonal Allergies, Hx Sleep Apnea, Other Respiratory Problems/Disorders GI History: Denies: Hx Cirrhosis, Hx Crohn's Disease, Hx Diverticulosis, Hx Gall Bladder Disease, Hx Gastroesophageal Reflux Disease, Hx Gastrointestinal Bleed, Hx Hiatal Hernia, Hx Irritable Bowel, Hx Jaundice, Hx Obstructive Bowel, Hx Ileostomy, Hx Pyloric Stenosis, Hx Ulcer, Hx Urosepsis, Other GI Disorders History: Denies: Hx Acute Renal Failure, Hx Benign Prostatic Hyperplasia, Hx Chronic Renal Failure, Hx Dialysis, Hx Kidney Infection, Hx Kidney Stones, Hx Renal Disease, Other Problems/Disorders Musculoskeletal History: Denies: Hx Arthritis, Hx Rheumatoid Arthritis, Hx Back Problems, Hx Bursitis , Hx Congenital Bone Abnormalities, Hx Fibromyalgia, Hx Gout, Hx Orthopedic Injury, Hx Osteoporosis, Hx Scoliosis, Hx Tendonitis, Other Musculoskeletal History Sensory History: Denies: Hx Cataracts, Hx Contacts or Glasses, Hx Eye Injury, Hx Eye Prosthesis, Hx Glaucoma, Hx Legally Blind, Hx Macular Degeneration, Hx Vision Problem, Hx Deafness, Hx Hearing Aid, Hx Hearing Problem, Other Sensory Impairments Opthamlomology History: Denies: Hx Cataracts, Hx Contacts or Glasses, Hx Eye Injury, Hx Eye Prosthesis, Hx Glaucoma, Hx Legally Blind, Hx Macular Degeneration, Hx Vision Problem, Other Sensory Impairments Neurological History: Denies: Hx CVA, Hx Dementia, Hx Developmental Delay, Hx Headaches, Hx Migraine, Hx Nerve Disease, Hx Peripheral Neuropathy, Hx Seizures, Hx Spinal Cord Injury, Hx Transient Ischemic Attacks (TIA), Other Neuro Impairments/ Disorders Psychiatric History: Reports: Hx Schizophrenia - depakote, klonipin, zoloft for years - no change in dosing - Surgical History Surgery Procedure, Year, and Place: denies Infectious Disease History: No Infectious Disease History: Denies: Hx Clostridium Difficile, Hx Hepatitis, Hx Human Immunodeficiency Virus (HIV), Hx of Known/Suspected MRSA, Hx Shingles, Hx Tuberculosis, Hx Known/ Suspected VRE, Hx Known/Suspected VRSA, History Other Infectious Disease, Traveled Outside the [place] in Last 30 Days - Family History Known Family History: Positive: Cardiac Disease - father had [place] , Diabetes, Other - mother of CA pancreas; no hx of colon cancer; dad - cholecystect Negative: Respiratory Disease, Seizure Disorder - Social History Occupation: Unemployed Lives: Alone Alcohol Use: Weekly Alcohol Amount: 1 beer Hx Substance Use: No Substance Use Type: Reports: None Hx Tobacco Use: Yes - [age] y.o. Smoking Status (MU): Former Smoker Amount Used/How Often: 1/2 PPD Review of Systems Positive: Fever, Chills Eyes: Negative Positive: Sore Throat, Nasal Discharge Cardiovascular: Negative Negative: Chest Pain Positive: Cough. Negative: Shortness Of Breath Gastrointestinal: Negative Negative: Abdominal Pain, Vomiting, Diarrhea Genitourinary: Negative Positive: Myalgia Skin: Negative Negative: Rash Neurological: Negative All Other Systems Reviewed And Are Negative: Yes Physical Exam Triage Information Reviewed: Yes Vital Signs On Initial Exam: Initial Vitals Temp Pulse Resp BP Pulse Ox 100.1 F 111 20 137/81 97 03/18/19 15:22 03/18/19 15:22 03/18/19 15:22 03/18/19 15:22 03/18/19 15:22 Vital Signs Reviewed: Yes Appearance: Positive: Well-Appearing - Pt. sitting up in bed in NAD. Skin: Positive: Warm, Dry Head/Face: Positive: Normal Head/Face Inspection Eyes: Positive: Normal, EOMI, HUMBERTO ENT: Positive: Pharynx normal, TMs normal Neck: Positive: Supple, Nontender. Negative: Nuchal Rigidity Respiratory/Lung Sounds: Positive: Other - Diminished breath sounds at bases with mild rhonchi on the right base. Cardiovascular: Positive: Normal, RRR Neurological: Positive: Normal, CN Intact II-III Psychiatric: Positive: Affect/Mood Appropriate Procedures - Sedation Patient Received Moderate/Deep Sedation with Procedure: No Diagnostics - Vital Signs Vital Signs Temp Pulse Resp BP Pulse Ox 03/18/19 15:22 100.1 F 111 20 137/81 97 - Laboratory Lab Statement: Any lab studies that have been ordered have been reviewed, and results considered in the medical decision making process. Flu Symptom Course/Dx - Course Course Of Treatment: Pt. with worsening cough and fever. Low grade fever and mildly tachy. O2 97% on RA. Flu swab negative. CXR negative per radiology> Will treat for bronchitis with azithromyin. To f.u with pcp. Increase fluids and rest. Tylenol or motrin for pain and fever as directed. WIll return to er if sxs change or worsen. - Diagnoses Differential Diagnosis/HQI/PQRI: Positive: Bronchitis, Influenza, Pneumonia, Upper Respiratory Infection Provider Diagnoses: Bronchitis Discharge ED - Sign-Out/Discharge Documenting (check all that apply): Patient Departure - Discharge Plan Condition: Good Disposition: HOME Prescriptions: Azithromycin TAB* [Zithromax TAB (Z-JOEY) 250 mg #6 tabs] 2 tab PO .TODAY, THEN 1 DAILY #1 joey Patient Education Materials: Acute Bronchitis (ED) Referrals: Marlon Ba MD [Primary Care Provider] - Additional Instructions: Follow up with PCP in 2-3 days Antibiotic as directed Increase fluids and rest Tylenol or Motrin for pain and fever as directed Return to ER if symptoms change or worsen - Billing Disposition and Condition Condition: GOOD Disposition: Home - Attestation Statements Provider Attestation: I was available for consultation for this patient. I did not evaluate the patient or participate in any medical decision making or disposition decisions unless I am specifically named in the chart as having consulted on the patient. If I have consulted on the patient, please see my own ED note on the patient encounter. Sanjay Mcclure MD
[2019-03-18 17:38] LABS: Influenza A Molecular NEGATIVE (Negative); Influenza B Molecular NEGATIVE (Negative)
[2019-03-18 17:54] VITALS: BP 152/70
== END 2019-03-18 17:55 | disposition home or self-care (01) ==
LOC: ED 15:20
DX: J40 Bronchitis, not specified as acute or chronic (principal); E11.9 Type 2 diabetes mellitus without complications; E07.9 Disorder of thyroid, unspecified; J44.9 Chronic obstructive pulmonary disease, unspecified; F20.9 Schizophrenia, unspecified; Z87.891 Personal history of nicotine dependence; Z79.899 Other long term (current) drug therapy
CPT/HCPCS: 71046; 99282; A9270-GY

== ENCOUNTER 2019-04-16 10:52 | Observation (INO) | payer MEDICARE, MEDICAID ==
[2019-04-16] MEDS ORDERED: NS 0.9% 1000 ML** 1,000 ML IV ONE (11:18)
[2019-04-16] MEDS ORDERED: Ondansetron INJ* 2 MG/ML VIAL IV ONE (11:18)
[2019-04-16] MEDS ORDERED: Ketorolac INJ* 30 MG/ML 1 ML VIAL IV PUSH ONE (11:19)
--- NOTE | 2019-04-16 11:19 | ED ---
Abdominal Pain/Male - HPI Summary HPI Summary: Pt. is a 53 y.o male who presents to the ER for RLQ pain that started last night. Pt. states pain seemed to start in his right low back and today moved to RLQ. Pt. notes darkening urine and nausea. Denies fever, chest pain, SOB. Medical hx of schizophrenia, HTN, HLD. Sxs are moderate in severity. No current modifying factors. NPO since last night. - History of Current Complaint Chief Complaint: EDAbdPain Stated Complaint: RT FLANK PAIN PER PT Time Seen by Provider: 04/16/19 11:09 Hx Obtained From: Patient Pain Intensity: 8 - Allergies/Home Medications Allergies/Adverse Reactions: Allergies Allergy/AdvReac Type Severity Reaction Status Date / Time No Known Allergies Allergy Verified 04/16/19 11:07 Home Medications: Home Medications Albuterol 2.5MG/3ML (0.083%)* [Ventolin 2.5 MG/3 ML NEB.CELESTE*] 3 ml INH TID 04/16 [History Confirmed 04/16/19] Fluticasone NASAL SPRAY 50MCG* [Flonase NASAL SPRAY 50MCG*] 1 spray BOTH NARES BID 04/16/19 [History Confirmed 04/16/19] Ipratropium [place] 0.06% Spra 2 spray BOTH NARES BID 04/16/19 [History Confirmed 04/16/19] Lurasidone(*) [Latuda] 80 mg PO DAILY 04/16/19 [History Confirmed 04/16/19] Saline NASAL SPRAY 0.65%* [Sodium Chloride 0.65% Nasal [place]*] 2 spray BOTH NARES .5X/DAY PRN 04/16/19 [History Confirmed 04/16/19] Umeclidinium 62.5 MDI(NF) [Incruse ELLIPTA MDI (NF)] 62.5 mcg INH DAILY [History Confirmed 04/16/19] PMH/Surg Hx/FS Hx/Imm Hx Previously Healthy: Yes Endocrine/Hematology History: Reports: Hx Diabetes - diet controlled, Hx Thyroid Disease - on meds Denies: Hx Anticoagulant Therapy, Hx Blood Disorders, Hx Unexplained Bleeding Cardiovascular History: Denies: Hx Aneurysm, Hx Angina, Hx Angioplasty, Hx Atrial Fibrillation, Hx Auto Implanted Cardiovert Defib, Hx Cardiac Arrest, Hx Cardiomegaly, Hx Congenital Heart Disease, Hx Congestive Heart Failure, Hx Coronary Artery Disease, Hx Deep Vein Thrombosis, Hx Embolism, Hx Hypercholesterolemia, Hx Hypotension, Hx Hypertension, Hx Myocardial Infarction, Hx Pacemaker/ICD, Hx Peripheral Vascular Disease, Hx Rheumatic Fever, Hx Syncope, Hx Valvular Heart Disease, Other Cardiovascular Problems/Disorders Respiratory History: Reports: Hx Chronic Obstructive Pulmonary Disease (COPD) Denies: Hx Asthma, Hx Bronchopulmonary Dysplasia, Hx Chronic Bronchitis, Hx Cystic Fibrosis, Hx Lung Cancer, Hx Pleural Effusion, Hx Pneumonia, Hx Pulmonary Edema, Hx Pulmonary Embolism, Hx Seasonal Allergies, Hx Sleep Apnea, Other Respiratory Problems/Disorders GI History: Denies: Hx Cirrhosis, Hx Crohn's Disease, Hx Diverticulosis, Hx Gall Bladder Disease, Hx Gastroesophageal Reflux Disease, Hx Gastrointestinal Bleed, Hx Hiatal Hernia, Hx Irritable Bowel, Hx Jaundice, Hx Obstructive Bowel, Hx Ileostomy, Hx Pyloric Stenosis, Hx Ulcer, Hx Urosepsis, Other GI Disorders History: Denies: Hx Acute Renal Failure, Hx Benign Prostatic Hyperplasia, Hx Chronic Renal Failure, Hx Dialysis, Hx Kidney Infection, Hx Kidney Stones, Hx Renal Disease, Other Problems/Disorders Musculoskeletal History: Denies: Hx Arthritis, Hx Rheumatoid Arthritis, Hx Back Problems, Hx Bursitis , Hx Congenital Bone Abnormalities, Hx Fibromyalgia, Hx Gout, Hx Orthopedic Injury, Hx Osteoporosis, Hx Scoliosis, Hx Tendonitis, Other Musculoskeletal History Sensory History: Denies: Hx Cataracts, Hx Contacts or Glasses, Hx Eye Injury, Hx Eye Prosthesis, Hx Glaucoma, Hx Legally Blind, Hx Macular Degeneration, Hx Vision Problem, Hx Deafness, Hx Hearing Aid, Hx Hearing Problem, Other Sensory Impairments Opthamlomology History: Denies: Hx Cataracts, Hx Contacts or Glasses, Hx Eye Injury, Hx Eye Prosthesis, Hx Glaucoma, Hx Legally Blind, Hx Macular Degeneration, Hx Vision Problem, Other Sensory Impairments Neurological History: Denies: Hx CVA, Hx Dementia, Hx Developmental Delay, Hx Headaches, Hx Migraine, Hx Nerve Disease, Hx Peripheral Neuropathy, Hx Seizures, Hx Spinal Cord Injury, Hx Transient Ischemic Attacks (TIA), Other Neuro Impairments/ Disorders Psychiatric History: Reports: Hx Schizophrenia - depakote, klonipin, zoloft for years - no change in dosing - Surgical History Surgery Procedure, Year, and Place: denies Infectious Disease History: No Infectious Disease History: Denies: Hx Clostridium Difficile, Hx Hepatitis, Hx Human Immunodeficiency Virus (HIV), Hx of Known/Suspected MRSA, Hx Shingles, Hx Tuberculosis, Hx Known/ Suspected VRE, Hx Known/Suspected VRSA, History Other Infectious Disease, Traveled Outside the [place] in Last 30 Days - Family History Known Family History: Positive: Cardiac Disease - father had [place] , Diabetes, Other - mother of [place] pancreas; no hx of colon cancer; dad - cholecystect Negative: Respiratory Disease, Seizure Disorder - Social History Alcohol Use: Weekly Alcohol Amount: 1 beer Hx Substance Use: No Substance Use Type: Reports: None Hx Tobacco Use: Yes - [age] y.o. Smoking Status (MU): Former Smoker Amount Used/How Often: 1/2 PPD Review of Systems Constitutional: Negative Negative: Fever Cardiovascular: Negative Negative: Palpitations, Chest Pain Respiratory: Negative Negative: Shortness Of Breath, Cough Positive: Abdominal Pain, Nausea. Negative: Vomiting, Diarrhea Positive: flank pain Neurological: Negative All Other Systems Reviewed And Are Negative: Yes Physical Exam Vital Signs On Initial Exam: Initial Vitals Temp Pulse Resp BP Pulse Ox 98.3 F 88 16 120/72 96 04/16/19 11:03 04/16/19 11:03 04/16/19 11:03 04/16/19 11:03 04/16/19 11:03 Procedures - Sedation Patient Received Moderate/Deep Sedation with Procedure: No Diagnostics - Vital Signs Vital Signs Temp Pulse Resp BP Pulse Ox 04/16/19 11:03 98.3 F 88 16 120/72 96 - Laboratory Result Diagrams: 04/16/19 11:24 04/16/19 11:24 Lab Statement: Any lab studies that have been ordered have been reviewed, and results considered in the medical decision making process. Abdominal Pain Male Course/Dx - Course Course Of Treatment: Pt. with RLQ pain and nausea. Suspect appendicitis vs urolithiasis. Pt. started on IV fluids and given toradol and zofran. Labs show mild elevation in CRP but otherwise unremarkable. CT per radiology: IMPRESSION : 1. ACUTE APPENDICITIS. 2. TRACE BILATERAL PLEURAL EFFUSIONS. 1215: Case discussed with Dr. Velazquez, surgery, who will see pt. Pt. and family updated. He is resting comfortably. IV zosyn started. Pt. dc to the OR. - Diagnoses Differential Diagnosis/HQI/PQRI: Appendicitis, Renal Colic, Testicular Torsion, Ureteral Stone Provider Diagnoses: Appendicitis Discharge ED - Sign-Out/Discharge Documenting (check all that apply): Patient Departure - Discharge Plan Condition: Stable Disposition: ADMITTED TO [facility] Referrals: Marlon Ba MD [Primary Care Provider] - - Billing Disposition and Condition Condition: STABLE Disposition: Admitted to [facility] - Attestation Statements Provider Attestation: I was available for consultation for this patient. I did not evaluate the patient or participate in any medical decision making or disposition decisions unless I am specifically named in the chart as having consulted on the patient. If I have consulted on the patient, please see my own ED note on the patient encounter. Sanjay Mcclure MD
[2019-04-16 11:37] LABS: ABS Lymphocytes 1.1 10^3/ul (1.0-4.8); ABS Neutrophils 8.1 10^3/ul (1.5-7.7); Hematocrit 40 % (42-52); Hemoglobin 13.8 g/dL (14.0-18.0); Mean Corpuscular HGB Conc 35 g/dL (31-36); Mean Corpuscular Hemoglobin 29 pg (27-31); Mean Corpuscular Volume 84 fL (80-94); Mean Platelet Volume 7.7 fL (7.4-10.4); Platelet Count 200 10^3/uL (150-450); Red Blood Count 4.73 10^6 /uL (4.18-5.48); Red Cell Distribution Width 14 % (10-15); White Blood Count 10.3 10^3/uL (3.5-10.8)
[2019-04-16 11:54] LABS: Albumin 4.3 g/dL (3.2-5.2); Albumin/Globulin Ratio 1.5 (1-3); BUN/Creatinine Ratio 21.1 (8-20); C Reactive Protein 48.6 mg/L (<8.01); Calcium 9.1 mg/dL (8.6-10.3); EGFR African American 107.6 (>60); Globulin 2.8 g/dL (2-4); Potassium 4.6 mmol/L (3.5-5.0); Total Bilirubin 0.8 mg/dL (0.2-1.0); Total Protein 7.1 g/dL (6.4-8.9)
[2019-04-16] MEDS ORDERED: Piperacillin/Tazobac ADVAN(*) 3.375 GM in NS 0.9% 100 ML* 100 ML IVPB ONE (13:08)
[2019-04-16] MEDS ORDERED: Buffered Lidocaine 1% SYRIN* 1 ML/SYRINGE INTRADERM ONE (14:28)
[2019-04-16] MEDS ORDERED: fentaNYL* 50 MCG/ML 5 ML VIAL (250 MCG VIAL) ONE (14:46)
[2019-04-16] MEDS ORDERED: Midazolam* 1 MG/ML 2 ML VIAL (2 MG) ONE (14:46)
[2019-04-16] MEDS ORDERED: Succinylcholine* 20 MG/ML 10 ML VIAL ONE (14:46)
[2019-04-16] MEDS ORDERED: Lidocaine 2% PF * 5 ML VIAL ONE (14:46)
[2019-04-16] MEDS ORDERED: Propofol* 10 MG/ML 20 ML BTL ONE (14:46)
[2019-04-16] MEDS ORDERED: Bupivacaine 0.5%* 50 ML MDV VIAL ONE (14:50)
[2019-04-16] MEDS ORDERED: oxyCODONE TAB* 5 MG TAB PO PRN ×2 (14:52→16:48)
[2019-04-16] MEDS ORDERED: Naloxone* 0.4 MG/ML 1 ML VIAL IV PRN ×2 (14:52→16:50)
[2019-04-16] MEDS ORDERED: HYDROmorphone INJ1* 1 MG/ML SYRINGE IV PRN ×2 (14:52→16:48)
[2019-04-16] MEDS ORDERED: Ondansetron INJ* 2 MG/ML VIAL IV PRN ×3 (14:52→16:50)
[2019-04-16] MEDS ORDERED: PROCHLORPERAZINE INJ 5 MG/ML 2 ML VIAL IV PRN ×2 (14:52→16:48)
[2019-04-16] MEDS ORDERED: diPHENhydraMINE IV* 50 MG/ML 1 ml VIAL (BENADRYL) IV PRN ×2 (14:52→16:48)
[2019-04-16] MEDS ORDERED: Rocuronium* 10 MG/ML VIAL ONE (14:54)
[2019-04-16] MEDS ORDERED: Lactated Ringers 1000 ML Bag* 1,000 ML IV SCH (15:00)
--- NOTE | 2019-04-16 15:07 | HP ---
AMENDED REPORT NOW INCLUDES DESIGNATED COSIGNER CC: Dr. Marlon Ba * DATE OF ADMISSION: 04/16/2019. ATTENDING SURGEON: Dr. Live Velazquez * (JEANNE Arteaga dictating). CHIEF COMPLAINT: Abdominal pain. HISTORY OF PRESENT ILLNESS: This is a 53-year-old male who awoke with right- sided abdominal pain at 0200 this morning. He states that the pain has remained on the right side. He describes it as being sharp and associated with nausea, but no vomiting or diarrhea. He has had some chills, but no fever. He thought at first that it might be a kidney stone as he has had one in the past, but it then seemed different. He has not had any other similar prior episodes. He presented to the ED. PAST MEDICAL HISTORY: Significant for schizophrenia, diet and exercise controlled type 2 diabetes, hypothyroidism on replacement, asthma. PAST SURGICAL HISTORY: Umbilical hernia repair. CURRENT MEDICATIONS: 1. Atorvastatin 20 mg once daily. 2. Albuterol MDI two puffs once daily. 3. Clozapine 100 mg once daily. 4. Levothyroxine 125 mcg once daily. 5. Depakote DR 500 mg once daily. 6. Duloxetine DR 60 mg once daily. 7. Lisinopril 5 mg once daily. 8. Latuda 80 mg once daily. 9. Ipratropium nasal spray two sprays each nares b.i.d. 10. Ellipta MDI one puff once daily. 11. Fluticasone nasal spray one spray each nostril twice daily. 12. Albuterol nebulizer 2.5 mg/3 ml q.a.m. DRUG ALLERGIES: None. FAMILY HISTORY: Negative for anesthesia problems, bleeding or clotting disorders. SOCIAL HISTORY: The patient lives alone. His sister lives nearby. He is on disability. He is a former smoker who quit 21 years ago. He drinks on average one drink per week. He denies any other recreational drug use. REVIEW OF SYSTEMS: General: No recent constitutional symptoms or acute illnesses other than described in the HPI. He did lose approximately 25 pounds at one point and no longer required medication for his diabetes at that point. He is fairly active in terms of walking. HEENT: He has full upper and lower dentures. No recent visual changes. Cardiovascular: No chest pain, palpitations, or history of heart murmur. Respiratory: No recent exacerbations of his asthma. No chronic cough. He was treated for sleep apnea at one point, but did not feel that it improved anything and does not currently use it. GI: As above per HPI. He has occasional blood per rectum and has undergone two colonoscopies in the past, most recently at age 50, both of which apparently revealed internal hemorrhoids. : No problems reported. Endocrine : Diet and exercised-controlled diabetes. He is on thyroid replacement for hypothyroidism. PHYSICAL EXAMINATION GENERAL: Well-nourished, but somewhat disheveled-appearing male in no acute distress. SKIN: Warm and dry. He has a rash in the right groin area that he states was from nickel sensitivity. He has been treating this with topical agents over the past year and it has remained stable, sometimes pruritic, but not painful. No open areas. It is somewhat erythematous and scaly. No other suspicious rashes or lesions. VITAL SIGNS: Height 5'10", weight 190 pounds. Temperature 98.3, blood pressure 130/80, pulse 86, respirations 16, room air saturation 96 percent. HEENT: Pupils equal and round, reactive. EOM's intact. No conjunctival pallor. Oropharynx: Full upper and lower dentures. No intraoral lesions. NECK: No lymphadenopathy, thyromegaly, or masses. LUNGS: Clear to auscultation. No wheezes. HEART: Regular rate and rhythm. No murmur noted. ABDOMEN: Flat, nondistended. Bowel sounds present. Soft with moderate tenderness in the right lower quadrant at McBurney's point with equivocal rebound and referred tenderness. No palpable masses, no palpable inguinal hernias. GENITALIA: Otherwise not examined. RECTAL: Not done. BACK: No spinous process or CVA tenderness. EXTREMITIES: No edema. NEUROLOGIC: Grossly intact. LABORATORY DATA: Of note, white blood cell count 10,300, hemoglobin 13.8. Chemistry is essentially normal with the exception of glucose 147 and CRP 48.6. Liver function tests are normal. Lactate was not performed. CT scan of the abdomen and pelvis without IV or oral contrast was notable for a 1.3 cm diameter dilated appendix with appendicolith at the base and periappendiceal stranding consistent with acute appendicitis. There were also trace bilateral pleural effusions. IMPRESSION: Acute appendicitis. PLAN: Laparoscopic appendectomy. The patient to be seen by Dr. Velazquez or the attending covering (possibly Dr. Howe) for confirmation of findings and plan. JEANNE ARTEAGA [id number]/[facility] #: [id number] MARTA
[2019-04-16] MEDS ORDERED: Acetaminophen IV 1GM/100ML * 100 ML ONE (15:12)
[2019-04-16] MEDS ORDERED: Dexamethasone IV* 4 MG/ML 1 ML (4 MG) ONE (15:36)
[2019-04-16] MEDS ORDERED: Ketorolac INJ* 30 MG/ML 1 ML VIAL ONE (16:07)
[2019-04-16] MEDS ORDERED: Ondansetron INJ* 2 MG/ML VIAL ONE (16:07)
[2019-04-16] MEDS ORDERED: Glycopyrrolate IV* 0.2 MG/ML 1 ML VIAL ONE (16:07)
[2019-04-16] MEDS ORDERED: HYDROmorphone INJ1* 1 MG/ML SYRINGE ONE (16:07)
[2019-04-16] MEDS ORDERED: Neostigmine Methylsulfate* 3 MG/3 ML SYRINGE ONE (16:09)
[2019-04-16] MEDS ORDERED: Bacitracin OINTMENT* 0.5% 0.5 oz TUBE ONE (16:29)
[2019-04-16] MEDS ORDERED: Acetaminophen TAB* 325 MG PO PRN (16:50)
[2019-04-16] MEDS ORDERED: HYDROmorphone INJ* 0.5 MG/0.5 ML SYRINGE IV SLOW PU PRN (16:50)
[2019-04-16] MEDS ORDERED: Ketorolac INJ* 30 MG/ML 1 ML VIAL IV PRN (16:50)
[2019-04-16] MEDS ORDERED: Albuterol HFA INHALER* 8 gm MDI INH PRN (16:58)
[2019-04-16] MEDS ORDERED: D5W 1/2 NS 1000 ML BAG* 1,000 ML IV SCH (17:00)
[2019-04-16] MEDS ORDERED: ZOSYN 3.375 GM x ONE DOSE over 30 miuntes IVPB ×2 (21:30)
[2019-04-16] MEDS: Albuterol 2.5 MG/3 ML NEB.SOL* (0.083%) INH SCH ×2 (21:51→22:25)
[2019-04-16] MEDS: NS 0.9% 1000 ML** 1,000 ML IV SCH (22:35)
[2019-04-16] MEDS: Piperacillin/Tazobactam VIAL*) 3.375 GM in NS 0.9% 100 ML* 100 ML IVPB SCH (22:38)
[2019-04-16] MEDS: Fluticasone NASAL SPRAY 50MCG* 16 gm SPRAY BTL BOTH NARES SCH (23:07)
--- NOTE | 2019-04-16 23:45 | OP ---
DATE OF OPERATION: 04/16/19 - ROOM #338 DATE OF : 69 SURGEON: Sanjay Howe MD PHOTORADIO OPERATOR: None. PRE-OP DIAGNOSIS: Appendicitis. POST-OP DIAGNOSIS: Gangrenous appendicitis. OPERATIVE PROCEDURE: Laparoscopic appendectomy. INDICATIONS: Appendicitis. Risks including, but not limited to, bleeding, infection, injury to the bowel or other intraabdominal contents, explained to the patient. He seemed to understand and agreed to procedure and all questions were answered. DESCRIPTION OF PROCEDURE: In the operating room under general endotracheal anesthesia and preoperative antibiotics had been given, the abdomen was prepped and draped in a sterile fashion. A time-out was performed indicating correct patient, correct procedure. A 5-mm trocar was placed in the left lower quadrant under direct visualization of the camera using a bladeless Optiview trocar. Pneumoperitoneum was achieved to 15 mmHg. The camera was placed in the abdomen. The abdomen was scanned. There was no obvious injury from trocar placement. 12-mm umbilical and 5-mm suprapubic trocars were placed, all under direct visualization of the camera. The patient was placed in a slight Trendelenburg position, tilted towards the left. Inflamed-appearing appendiceal tip and body were noted, gently mobilized, appeared gangrenous, purulence in the midpoint likely from local perforation. The base was divided using a stapler along with mesoappendix, which was relatively obliterated. There was no bleeding. The appendix was placed into an Endobag and removed from the umbilical port site. The right upper quadrant was irrigated and aspirated dry. Some turbid fluid was noted in the pelvis. Drain was brought through the umbilical trocar, laid along the right lower quadrant, down towards the pelvis and out the suprapubic trocar. This was removed. The drain was sutured in place with 2-0 silk. The midline trocar at the umbilicus was used for irrigation. The camera scanned the abdomen, no obvious injuries were noted. Pneumoperitoneum was released from the patient abdomen. The trocars were removed. The midline fascia was closed with 0 Vicryl and the skin was closed with Monocryl and glue at the two sites. He tolerated the procedure well. He was extubated and taken to the recovery room in stable condition. [id number]/[facility] #: [id number] [facility] CAN[facility] CENTERDomingo
[2019-04-17] MEDS: HYDROcodone/ACETAMIN 5-325 MG* 1 TAB PO PRN ×3 (05:18→13:36)
[2019-04-17] MEDS: Piperacillin/Tazobactam VIAL*) 3.375 GM in NS 0.9% 100 ML* 100 ML IVPB SCH (05:28)
[2019-04-17] MEDS ORDERED: Levothyroxine TAB* 125 MCG TAB PO SCH (06:00)
[2019-04-17] MEDS: NS 0.9% 1000 ML** 1,000 ML IV SCH (07:40)
[2019-04-17] MEDS ORDERED: Divalproex DR TAB(*) 500 MG PO SCH ×2 (09:00→21:00)
[2019-04-17] MEDS ORDERED: Lurasidone(*) 80 MG TAB PO SCH (09:00)
[2019-04-17] MEDS ORDERED: Atorvastatin* 20 MG TAB PO SCH (09:00)
[2019-04-17] MEDS ORDERED: SPIRIVA Respimat* (tiotropium) 2.5 mcg/inh Inhaler INH SCH (09:00)
[2019-04-17] MEDS ORDERED: CloZAPine TAB* 100 MG TAB PO SCH ×2 (09:00→11:00)
[2019-04-17] MEDS ORDERED: DULoxetine DR CAP* 60 MG CAP.DR PO SCH (09:00)
[2019-04-17] MEDS: Albuterol 2.5 MG/3 ML NEB.SOL* (0.083%) INH SCH (09:17)
[2019-04-17] MEDS: Fluticasone NASAL SPRAY 50MCG* 16 gm SPRAY BTL BOTH NARES SCH (09:43)
[2019-04-17 11:47] VITALS: BP 131/65
--- NOTE | 2019-04-17 12:33 | PN ---
Progress Note - Progress Note Date of Service: 04/17/19 Note: S: POD#1. Doing well overall. Pain controlled. Clara diet. Ambulating. Passing flatus. No BM. O: Vital Signs - 8 hr 04/17/19 04/17/19 04/17/19 05:18 07:49 08:00 Temperature 97.6 F Pulse Rate 77 Respiratory 18 16 18 Rate Blood Pressure 126/71 (mmHg) O2 Sat by Pulse 97 97 Oximetry 04/17/19 04/17/19 04/17/19 09:37 09:38 11:46 Temperature 98.9 F Pulse Rate 97 Respiratory 18 18 16 Rate Blood Pressure 131/65 (mmHg) O2 Sat by Pulse 96 Oximetry Intake and Output Last 24 Hours 04/15/19 04/16/19 04/17/19 04/18/19 06:59 06:59 06:59 06:59 Intake Total 3633 1461 Output Total 365 170 Balance 3268 1291 Weight 190 lb 188 lb 6.4 oz Intake: IV Fluids 3323 1101 ABX - ZOSYN 110 LR 2273 NS (0.9%) 991 IVPB 110 ABX - ZOSYN 110 Oral 200 360 Output: KIMBERLEY #1 65 20 Urine 300 150 Other: Estimated Void Medium Date of Last Bowel 04/15/19 Movement # Bowel Movements 0 Estimated Stool Amount Medium # Voids 1 Heart: reg Lungs: clear Abd: mildly distended/tympanitic; +BS; soft; mild, mostly R-sided tenderness; KIMBERLEY ~ 1/2 full: serosang A: s/p lap appy for acute suppurative appendicitis, improving P: home today w/ KIMBERLEY; discussed w/ Dr. Howe: no need for abx upon d/c; office f /u 2 d for drain removal
--- NOTE | 2019-04-17 13:09 | DS ---
CC: Dr. Ba * DISCHARGE SUMMARY: DATE OF ADMISSION: 04/16/19 DATE OF DISCHARGE: 04/17/19 ATTENDING SURGEON: Dr. Sanjay Howe.* (DICTATED BY JEANNE ESTEBAN) HOSPITAL COURSE: Please refer to admission history and physical and operative note for details. The patient was admitted and taken to the operating room on 04/16/19, for laparoscopic appendectomy for acute suppurative appendicitis by Dr. Howe. He has had an uneventful postoperative course and was doing well as of the morning of discharge (see separate progress note from the same date). He does have a Flavio Dean drain which he will be discharged with. There was not felt to be any need for additional antibiotics. He will resume his usual home medications. A prescription was e-sent to his pharmacy for [place] 5/ 325 p.r.n. stronger pain. He has a followup in our office on 04/19/19, for recheck and removal of his drain. He is discharged to home in good condition. JEANNE ESTEBAN [id number]/[facility] #: [id number] MTDDomingo
== END 2019-04-17 14:00 | disposition home or self-care (01) ==
LOC: ED 10:52 → OR 10:52 → ED 15:06 → OR 16:48 → SSU 16:50
PROVIDERS: ADMIT Surgery; ATTEND Surgery
DX: K35.80 Unspecified acute appendicitis (principal); R10.9 Unspecified abdominal pain; Z79.899 Other long term (current) drug therapy; F20.9 Schizophrenia, unspecified; E11.9 Type 2 diabetes mellitus without complications; E03.9 Hypothyroidism, unspecified; J45.909 Unspecified asthma, uncomplicated; J90 Pleural effusion, not elsewhere classified; J44.9 Chronic obstructive pulmonary disease, unspecified; Z87.891 Personal history of nicotine dependence
CPT/HCPCS: 36415; 74176; 80053; 85025; 86140; 88304; 94640; 96365; 96366; 96375; 99283; A9270-GY; G0378; J0330; J1100; J1170; J1885; J2250; J2405; J2543; J2704; J2710; J3010; J3490; J3535